=== PATIENT | male | born 1980 | race Caucasian/White ===

== ENCOUNTER 2021-02-27 12:52 | Emergency (ER) | payer BC, SELFPAY ==
--- NOTE | 2021-02-27 12:42 | ECG_ITS ---
APPROVED REPORT Exam: Resting ECG HR:87 bpm ECG Measurements Heart Rate 87 AXES WA 146 P 46 QRSd 96 QRS 57 QT 354 T 66 QTc 425 Conclusion Normal sinus rhythm Cannot rule out Anterior infarct, age undetermined Abnormal ECG Electronically signed by : Vasyl Fatima MD 03/01/2021 20:23:23
--- NOTE | 2021-02-27 13:00 | [facility].EDGENADL ---
ED Disposition Clinical Impression: Atypical chest pain Disposition: Home, Self-Care Condition on Discharge: Good Instructions: DI for Atypical Chest Pain Additional Instructions: You are being provided with a list of physicians available for follow-up of your condition. Please call a physician on this list to arrange a follow-up appointment as soon as possible. Additional instructions for CHEST PAIN: See your physician as soon as possible for further evaluation. Return immediately if worsening chest pain, vomiting, shortness of breath, fever, coughing of blood. Referrals: Provider,Referral, MD [Primary Care Provider] - Forms: Work/School Release - Critical Care Critical Care Time: No Attestation: On , the high probability of a clinically significant, sudden or life threatening deterioration of the following system(s) required my full and direct attention, intervention and personal management. The time I documented below is in addition to time spent performing reported procedures but includes the following listed in this critical care notation. Medical Decision Making - Murali Inquiry Pt receiving controlled substance: No Vital Signs: 02/27/21 13:01 02/27/21 13:06 02/27/21 13:30 Temperature 98.3 F Temperature Source Oral Pulse Rate 82 79 Pulse Rate [Right Radial] 85 Respiratory Rate 16 18 15 Blood Pressure 180/111 H 154/87 H Blood Pressure [Right Arm] 143/98 H Blood Pressure Mean [Right Arm] 113 Blood Pressure Source [Right Arm] Automatic Cuff Blood Pressure Position [Right Arm] Supine 02 Sat by Pulse Oximetry 97 98 95 Oxygen Delivery Method Room Air 02/27/21 14:00 Temperature Temperature Source Pulse Rate 80 Pulse Rate [Right Radial] Respiratory Rate 15 Blood Pressure 141/86 H Blood Pressure [Right Arm] Blood Pressure Mean [Right Arm] Blood Pressure Source [Right Arm] Blood Pressure Position [Right Arm] 02 Sat by Pulse Oximetry 96 Oxygen Delivery Method - Lab Data Lab Results 02/27/21 13:04: WBC 10.1, RBC 5.05, Hgb 16.0, Hct 48.6, MCV 96.1 H, MCH 31.8 H, MCHC 33.0, RDW 13.1, Plt Count 390, MPV 6.9 L, Neut % (Auto) 63.2, Lymph % (Auto) 24.1, [place] % (Auto) 8.5, Eos % (Auto) 3.4, Baso % (Auto) 0.8, Neut # (Auto) 6.4, Lymph # (Auto) 2.4, [place] # (Auto) 0.9, Eos # (Auto) 0.3, Baso # (Auto) 0.1 02/27/21 13:04: Sodium 141, Potassium 4.0, Chloride 105, Carbon Dioxide 28, Anion Gap 12.0, BUN 15, Creatinine 0.90, Estimated Creat Clear 198, Estimated GFR 93, Est GFR ( Amer) 113, Glucose 125 H, Calcium 9.1, Total Bilirubin 1.0, AST 29, ALT 21, Alkaline Phosphatase 77, Troponin I < 0.01, Total Protein 7.4, Albumin 4.4, Globulin 3.0, Albumin/Globulin Ratio 1.5, Amylase 45 02/27/21 13:04: Lactate 1.8 02/27/21 13:04: Lipase 102 Result diagrams: 02/27/21 13:04 02/27/21 13:04 Orders (Tests/Meds): ED MEDICATIONS Discontinued Medications Generic Name Dose Route Start Last Admin Trade Name Nickolasq PRN Reason Stop Dose Admin Aspirin 324 mg 02/27/21 13:49 02/27/21 14:04 Aspirin 81mg Chewable Tablet PO 02/27/21 13:50 324 mg ONCE ONE Administration ORDERS Category Date Time Status Chest XR -- portable [XR chest portable] Stat Exams 02/27/21 13:38 Taken Troponin I Q3H Lab 02/27/21 16:45 Ordered Troponin I Q3H Lab 02/27/21 19:45 Ordered - ECG Data Tracing #1 EKG interpreted by Geoffrey Del Cid MD: Rhythm: sinus Rate: 87 [place]: normal Ectopy: none Conduction: Incomplete right bundle branch block ST Segment Changes: none T Wave Changes: none Q Waves: none Poor R wave progression No prior EKGs available for comparison. Medical Decision Narrative: Heart Pathway Score is: 1 Low Risk Recommended approach: Repeat troponin and if negative outpatient follow-up The patient's symptoms are most consistent with chest wall pain. Low risk for acute coronary syndrome. I recommended that he stay for second troponin for further evaluat
[2021-02-27 13:01] VITALS: BP 180/111; PULSE 82; RESP 16; O2SAT 97
[2021-02-27 13:06] VITALS: BP 143/98; PULSE 85; RESP 18; TEMP 36.8; O2SAT 98; BMI 38.6
[2021-02-27 13:30] VITALS: BP 154/87; PULSE 79; RESP 15; O2SAT 95
--- NOTE | 2021-02-27 13:38 | XR_ITS ---
PROCEDURE INFORMATION: Exam: XR Chest Exam date and time: 02/27/2021 1:38 PM Age: 40 years old Clinical indication: Pain; Chest pressure; Additional info: Cp TECHNIQUE: Imaging protocol: XR of the chest. Views: 1 view. COMPARISON: No relevant prior studies available. FINDINGS: Lungs: Unremarkable. No consolidation. Pleural spaces: Unremarkable. No pleural effusion. No pneumothorax. Heart/Mediastinum: Unremarkable. No cardiomegaly. Bones/joints: Unremarkable. IMPRESSION: No acute findings.
--- NOTE | 2021-02-27 13:41 | PC.NURSE ---
rad at bedside
[2021-02-27 13:48] LABS: Chloride 105 mmol/L (98-107); Sodium 141 mmol/L (136-145)
[2021-02-27 13:49] LABS: Basophils # 0.1 K/mm3 (0-0.2); Basophils % 0.8 % (0.1-2.0); Eosinophils # 0.3 K/mm3 (0.0-0.4); Eosinophils % 3.4 % (0.1-12.0); Hematocrit 48.6 % (42.0-52.0); Lymphocytes # 2.4 K/mm3 (0.7-4.5); Lymphocytes % 24.1 % (10-50); Mean Corpuscular Hemoglobin 31.8 pg (27.0-31.2); Mean Corpuscular Volume 96.1 fl (80-94); Mean Platelet Volume 6.9 fl (7.4-10.4); Monocytes # 0.9 K/mm3 (0.1-1.0); Monocytes % 8.5 % (1.7-9.3); Neutrophils # 6.4 K/mm3 (1.8-7.8); Neutrophils % 63.2 % (37.0-80.0); Platelet Count 390 K/mm3 (142-424); Red Blood Count 5.05 M/mm3 (4.60-6.20); Red Cell Distribution Width 13.1 % (11.5-17.5); White Blood Count 10.1 K/mm3 (4.8-10.8)
[2021-02-27 13:50] LABS: Amylase 45 U/L (30-110); Blood Urea Nitrogen 15 mg/dl (9-20); Creatinine Clearance Estimated 198 mL/min (50-200); Estimated Glomerular Filt Rate 93 ml/min (>60); GFR (African American) 113 ML/MIN (>60)
[2021-02-27 13:51] LABS: Alanine Aminotransferase 21 U/L (12-78); Albumin Level 4.4 g/dl (3.5-5.0); Albumin/Globulin Ratio 1.5 (1.1-1.8); Alkaline Phosphatase 77 U/L (38-126); Aspartate Amino Transferase 29 U/L (17-59); Calcium 9.1 mg/dl (8.4-10.2); Carbon Dioxide 28 mmol/L (22.0-30.0); Glucose 125 mg/dl (74-100); Lipase 102 U/L (23-300); Total Protein,Serum 7.4 g/dl (6.3-8.2)
[2021-02-27 13:52] LABS: Lactic Acid 1.8 mmol/L (0.7-2.1)
[2021-02-27 14:00] VITALS: BP 141/86; PULSE 80; RESP 15; O2SAT 96
[2021-02-27 14:04] LABS: Troponin I < 0.01 ng/ml (0.00-0.034)
[2021-02-27 14:46] VITALS: BP 140/80; PULSE 70; RESP 16; TEMP 36.7; O2SAT 98
== END 2021-02-27 14:47 | disposition home or self-care (01) ==
PROVIDERS: Emergency Provider Emergency Medicine
DX: R07.89 Other chest pain (principal)
CPT/HCPCS: 71045; 80053; 82150; 83605; 83690; 84484; 85025; 93005; 99284